=== PATIENT | male | born 1955 | race African-American/Black ===

== ENCOUNTER 2017-10-26 21:10 | Emergency (ER) | payer OTHER ==
[~2017-10-26] VITALS: Ht 180.3 cm; Wt 110.2 kg
[~2017-10-26 21:10] MED LIST: bp med
[2017-10-26 22:27] VITALS: BP 162/87
== END 2017-10-26 23:19 | disposition home or self-care (01) ==
LOC: ER 21:10
DX: J40 Bronchitis, not specified as acute or chronic (principal); I10 Essential (primary) hypertension; Z87.891 Personal history of nicotine dependence
CPT/HCPCS: 71045